=== PATIENT | female | born 1980 ===

== ENCOUNTER 2016-11-12 10:04 | Day surgery (SDC) | payer BC ==
[2016-11-05 10:54] VITALS: BMI 24.2
[2016-11-12] MEDS ORDERED: Propofol 10 mg/ml Inj (20 ML) ONE (10:33)
[2016-11-12] MEDS ORDERED: ePHEDrine 50 mg/ml Inj ONE (10:33)
[2016-11-12] MEDS ORDERED: Rocuronium 10 mg/ml (5 ml) ONE (10:33)
[2016-11-12] MEDS ORDERED: Succinylcholine 200 mg/10 ml Inj IV ONE (10:33)
[2016-11-12 11:04] LABS: BASO % 0.4 % (0.0-2.0); EOS % 0.5 % (0.0-4.0); HEMATOCRIT 33.7 % (34.0-47.0); LYMPH # 2.6 K/uL (1.0-4.3); LYMPH % 37.7 % (20.0-40.0); MEAN CELL VOLUME 96.2 fl (81.0-99.0); MEAN CORPUSCULAR HEMOGLOBIN 32.1 pg (27.0-31.0); MEAN CORPUSCULAR HGB CONC 33.4 g/dL (33.0-37.0); MONO # 0.5 K/uL (0.0-0.8); MONO % 7.7 % (0.0-10.0); NEUT # 3.7 K/uL (1.8-7.0); NEUT % 53.7 % (50.0-75.0); NRBC % 0.1 % (0.0-0.0); RED CELL DISTRIBUTION WIDTH 13.3 % (11.5-14.5); WHITE BLOOD COUNT 6.8 K/uL (4.8-10.8)
[2016-11-12] MEDS ORDERED: Lactated Ringer's 1,000 ML IV ONE ×2 (11:24→13:05)
[2016-11-12] MEDS ORDERED: Midazolam 2 MG/2 ML VIAL ONE (12:36)
[2016-11-12] MEDS: Bupivacaine 0.5% Inj(30mL) ONE ×2 (13:25→14:37)
[2016-11-12] MEDS ORDERED: Neostigmine Methylsulfate 3mg/3ml Syringe IV ONE (14:05)
[2016-11-12] MEDS ORDERED: HYDROmorphone 0.5 mg/0.5 ml ISec IVP PRN (15:13)
[2016-11-12] MEDS ORDERED: Oxycodone/Acetaminophen 5/325 mg Tab PO PRN (15:47)
[2016-11-12 17:43] VITALS: RESP 18
[2016-11-12 18:56] VITALS: BP 113/67; PULSE 72; TEMP 97.9; O2SAT 98
--- NOTE | 2016-11-14 09:38 | PCM.OP ---
Operative Report - Operative Report Date of Surgery/Procedure: 11/12/16 Time of Surgery/Procedure: 08:00 Surgeon: Dr. Jose Rafael Stephens Compensation Expert: Dr. Chapin Mcleod Anesthesia/Sedation: general/Dr. Santiago Pre-Operative Diagnosis: abdominal pain and endometriosis Post-Operative Diagnosis: same Indication for Surgery: Danitza-rectal and appendix endometriosis Operative Findings: same Procedure/Operation Description: 1-Excision danitza-rectal endometriosis. 2- Appendectomy. Brief Histroy: This 35 year old woman was brought to the operating room by Dr. Mcleod when he encountered lesions on the danitza-rectal wall and appendix. He asked for intraoperative consultation from general surgery. Description of the Procedure: The patient had already been brought to the operating room by Dr. Mcleod after intitiating the robotic procedure he encounted the above lesions (separate dictation Dr. Mcleod). After taking control of the robotic console the first lesion was dissected using both blunt and sharp dissection with the aid of electrocautery. The lesion was incised circumferentially and dissected with a small margin of normal tissue. The specimen was appropriately marked and sent to pathology separately. Attention was then turned to the appendix and using the electrocautery the appendiceal mesnetery was incised and the appendiceal artery was dessicated. With the base of the appendix exposed a double tie of 3-0 vicryl endoloop was placed at the base of the appendix. The appendix was then transected and after being appropriately marked was sent to pathology as a separate specimen. Hemostasis of both opeerative sites was examined and deemed adequate. The operation was then turned over to Dr. cMleod (separate dictation Dr. Mcleod). Estimated Blood Loss: 5 cc Complications: none Discharge & Condition: stable
--- NOTE | 2016-11-15 18:05 | OP ---
PROCEDURE DATE: 11/12/2016 PREOPERATIVE DIAGNOSES: Pelvic pain, dysmenorrhea, dyspareunia, dysuria, bladder pain, abdominal pain, and rule out endometriosis. POSTOPERATIVE DIAGNOSES: Pelvic pain, dysmenorrhea, dyspareunia, dysuria, bladder pain, abdominal pain and rule out endometriosis plus pelvic endometriosis involving the pelvic, peritoneum, and the appendix, stage II-III. PROCEDURE PERFORMED: Cystoscopy operative with bilateral ureteral catheterization and injection of ICG dye, diagnostic hysteroscopy,robotic da mattie operative laparoscopy, bilateral ureterolysis, excision of endometriosis, ablation of endometriosis, and appendectomy to be dictated separately by Dr. Jose Rafael Stephens. SURGEON: Chapin Mcleod MD ALARM SIGNALER: Dr. Jose Rafael Stephens and Carol Ann Mitchell PA-C SAMPLES: Multiple samples from the left pelvic sidewall, posterior cervix, anterior rectal area, and sent to pathology. COMPLICATIONS: None. ESTIMATED BLOOD LOSS: Minimal. INDICATION FOR THE PROCEDURE: This patient is a 35-year-old with a known history of endometriosis, very symptomatic who had prior surgery [address] Chin who had found endometriosis and treated it with ablation. She had persistent symptoms, which were resistant to medical treatment. Upon examination at the office, she displayed signs of recurrent pain and acute tenderness on deep examination. At this point, the patient signed the consent and she was instructed with regards to the likelihood of the surgery to identify the cause of her problem and solve her problem and she understood all the risks of the surgery included, but not limited to bowel injury, bowel perforation, bladder injury, bleeding, and abdominal infection. She signed the consent and was taken to the OR. DESCRIPTION OF PROCEDURE: After the patient was taken to the OR and she was placed under anesthesia, her body was padded in all the area prone to pressure and she was prepped and draped. The surgeon was gowned and gloved. A time-out was taken according to the standards of the hospital. At this point, attention was in the vaginal area where a cystoscope was inserted into the bladder under direct visualization. The bladder was distended and both ureteral ostia appeared to be in the normal anatomical position. The left ureter was then identified and catheterized using a 5-Icelandic ureteral catheter open-ended up to the distal ureter and 5 mL of IC green dilution were injected into the distal ureter. The catheter was then removed from the ureteral ostia and the right ureteral ostia was then identified and catheterized using a 5-Icelandic open-ended catheter, which was pushed all the way to the distal ureter and the distal ureter was then injected with 5 mL of IC green as well. The catheter was then removed from the left distal ureter. At this point, a samayoa-cystoscopy was performed revealing no evidence of stones, tumor, bleeding areas, or interstitial cystitis. At this point, the cystoscope was removed and a 16-Icelandic Marti was inserted into the bladder, which was draining clear urine. At this point, attention was in the vaginal area, where after inserting a speculum into the vagina, the anterior lip of the cervix was grasped, the cervix was gently dilated and a hysteroscope was inserted into the cervix. The uterine cavity was visualized and distended. There appeared to be no evidence of tumors, polyps, or submucous fibroids. Both tubal ostia were visualized, appearing to be normal. Endocervical canal appeared to be normal. At this point, the hysteroscope was removed. A uterine manipulator was inserted into the uterus and attention was on the abdomen. After re-gowning and re-gloving, an open laparoscopy was performed using the standard technique, entering the abdomen in a blunt fashion. A cannula for trocar was inserted and the abdomen was insufflated. After obtaining adequate insufflation, three additional trocar were inserted under direct visualization; right upper quadrant, left upper quadrant, and left mid quadrant. The Da Mattie Robot Was Docked. At this point, the pelvis was visualized with findings as follows. There were clear inflammatory areas in the back on the posterior aspect of the uterus. The anterior aspect of the uterus and bladder was normal. There were endometriosis, implants, and postinflammatory changes in the posterior cervix in left and right pelvic sidewalls. The appendix appeared to be adherent and pulled down towards over the brim of the pelvis and appeared to have some inflammatory changes. There was also small implant of endometriosis on the left ovary, which was immediately ablated. At this point, attention was on the left and side of the pelvis where after elevating the surgery and ablating the small implant of endometriosis on the left ovary, the ureter was identified utilizing fluorescence technology. The peritoneum overlying the ureter was entered and dissected off in a very slow and deliberate fashion, thus lateralizing the ureter. An area of peritoneum containing endometriosis was then excised in en block piece, which was excised and sent to pathology. Great care was made to avoid both damaging the ureter and the underlying vessels. Attention was in the posterior cervical aspect of the uterus where there were signs of postsurgical changes and some inflammation. An incision was made longitudinally and the peritoneum was entered in the posterior cervix and it was progressively excised, excising a 2 x 2 cm of peritoneum containing endometriosis. With the aid of Dr. Stephens from General Surgery, an additional lesion was excised from the anterior rectal area and posterior cervical area. Again, attention was on the right hand side where after elevating the ovary, the ureter was again identified utilizing fluorescence. The retroperitoneum space was entered and a progressive dissection was performed in a [id number] fashion excising an area of peritoneum after lateralizing the ureter and sending it en bloc to pathology. The whole area was then coagulated to make sure that no bleeders were present and preservation of nerves as well as vascular bundles and ureter was performed. At this point, an appendectomy was performed by Dr. Stephens, who will dictate separately. The pelvis was irrigated, appeared to be free of adhesions and any other lesions. The upper abdomen was was without evidence of lesion or any other pathology. At this point, the da Mattie robot was undocked. The instruments were removed. The abdomen was desufflated. At the end of the procedure, all tapes and instruments counts are correct. The patient tolerated the procedure well and was taken to recovery room in excellent condition. Chapin Mcleod MD MTDD
== END 2016-11-12 18:50 | disposition home or self-care (01) ==
LOC: H.OPSURG 10:04
PROVIDERS: ATTEND Obstetrics & Gynecology Reproductive Endocrinology
DX: N94.6 Dysmenorrhea, unspecified (principal); E03.9 Hypothyroidism, unspecified; R10.2 Pelvic and perineal pain; N80.3 Endometriosis of pelvic peritoneum
CPT/HCPCS: 36415; 51715; 52005; 58662; 58999; 85025; 86850; 86900; 88305; C1729; J0330; J0690; J1170; J2001; J2250; J2405; J2704; J2710; J2765; J3010; J7030; J7040; J7120